=== PATIENT | male | born 1930 | race Two or more races ===

== ENCOUNTER 2018-09-06 07:01 | Emergency (ER) | payer OTHER ==
[~2018-09-06] VITALS: Ht 165.1 cm; Wt 63.5 kg
--- NOTE | 2018-09-06 07:05 | NUR ---
PT BIB [id number]. PT NON-VERBAL, HX OF DEMENTIA. PT IS ABLE TO TRACK AND FOLLOW COMMANDS. RESPONSIVE TO VERBAL AND TACTILE STIMULI. PT WAS SENT FROM [facility] FOR G-TUBE REPLACEMENT. VSS. G-TUBE SITE NOT EDEMATOUS, NO REDNESS, AND NO DISCHARGE. PT PRESENTS W/ A TRACH, ON SUPPLEMENTAL O2 2 LPM VIA N/C. PT DOES NOT APPEAR TO BE IN ANY APPARENT DISTRESS AT THIS TIME.
--- NOTE | 2018-09-06 07:11 | NUR ---
GAVE SHIFT REPORT TO RILEY SINGH.
--- NOTE | 2018-09-06 07:14 | NUR ---
Patient BIB [facility] from [facility] ([facility] for G-Tube replacement. patient pulled out his GT 30 min FILLING SEPARATOR, 911 was called and patient was brought here for the replacement.
[2018-09-06 09:10] LABS: BASOPHILS # (AUTO) 0.1 K/uL (0.0-8.0); BASOPHILS % (AUTO) 0.8 % (0.0-2.0); EOSINOPHILS # (AUTO) 1.1 K/uL (0.0-0.7); EOSINOPHILS % (AUTO) 12.8 % (0.0-7.0); HEMATOCRIT 35.3 % (36.7-47.1); HEMOGLOBIN 11.8 g/dL (12.5-16.3); LYMPHOCYTES # (AUTO) 1.8 K/uL (20.0-40.0); LYMPHOCYTES % (AUTO) 20.8 % (20.5-51.5); MEAN CORPUSCULAR HEMOGLOBIN 27.6 uug (23.8-33.4); MEAN CORPUSCULAR HGB CONC 34 g/dL (32.5-36.3); MEAN CORPUSCULAR VOLUME 82.3 fL (73.0-96.2); MONOCYTES # (AUTO) 0.8 K/uL (2.0-10.0); MONOCYTES % (AUTO) 8.8 % (0.0-11.0); NEUTROPHILS # (AUTO) 4.9 K/uL (1.8-8.9); NEUTROPHILS % (AUTO) 56.8 % (38.5-71.5); PLATELET COUNT (AUTO) 257 K/uL (152-348); RED BLOOD CELL COUNT(AUTO) 4.29 MIL/uL (4.06-5.63); WHITE BLOOD COUNT (AUTO) 8.6 K/uL (3.6-10.2)
[2018-09-06 09:21] LABS: CARBON DIOXIDE 30 mmol/L (21-32); CHLORIDE 106 mmol/L (98-107); CREATININE 1.1 mg/dL (0.6-1.3); GLUCOSE 98 mg/dL (74-106); POTASSIUM 3.9 mmol/L (3.5-5.1); UREA NITROGEN, BLOOD 33 mg/dL (7-18)
[2018-09-06 09:27] LABS: ALANINE AMINOTRANSFERASE 36 U/L (16-63); ALKALINE PHOSPHATASE 80 U/L (50-136); ASPARTATE AMINOTRANSFERASE 35 U/L (15-37); BILIRUBIN,DIRECT 0.1 mg/dL (0.0-0.2); BILIRUBIN,TOTAL 0.4 mg/dL (0.2-1.0); TOTAL PROTEIN, SERUM 9.1 g/dL (6.4-8.2)
--- NOTE | 2018-09-06 10:13 | NUR ---
PERINEAL HYGIENE PROVIDED FOR PT. PT HELPING THROUGH THE PROCESS. WET DIAPER, NO BM.
[2018-09-06] MEDS ORDERED: BLOO-360 (10:14)
[2018-09-06] MEDS ORDERED: LACT10SO6 PO (10:14)
[2018-09-06] MEDS ORDERED: DIPH25CA83 GT (10:14)
[2018-09-06] MEDS ORDERED: LANTUS SQ (10:14)
[2018-09-06] MEDS ORDERED: DEXT15DR6 EACHEYE (10:14)
[2018-09-06] MEDS ORDERED: LORA-259 GT (10:14)
[2018-09-06] MEDS ORDERED: LORA10TA7 GT (10:14)
[2018-09-06] MEDS ORDERED: ACET-2154 GT (10:14)
[2018-09-06] MEDS ORDERED: METO5TAB2 GT (10:14)
[2018-09-06] MEDS ORDERED: METO-356 GT (10:14)
[2018-09-06] MEDS ORDERED: DOXA4TAB3 GT (10:14)
[2018-09-06] MEDS ORDERED: IPRA0.2S48 NEB (10:18)
[2018-09-06] MEDS ORDERED: ALBU2.5V38 NEB (10:18)
[2018-09-06] MEDS ORDERED: ALBUTEROL/IPRATROPIU NEB (10:18)
--- NOTE | 2018-09-06 11:30 | NUR ---
CALLED PT DAUGHTER, ANY THOMPSON, AT [phone], TO OBTAIN THE CONSENT FOR G-TUBE PLACEMENT, PER DR. RIZO REQUEST.WITNESSED BY SAMANTHA LIN.
--- NOTE | 2018-09-06 11:55 | NUR ---
FIELD AUDITOR CAME TO TAKE THE PT TO OR. PT IN STABLE CONDITION.
[2018-09-06] MEDS ORDERED: IV NS 1000 ML 1,000 ML IV PRN (13:00)
--- NOTE | 2018-09-06 13:18 | NUR ---
[facility] light with in reach v/s are stable , called for admission orders
[2018-09-06 13:38] VITALS: BP 141/79
--- NOTE | 2018-09-06 13:56 | NUR ---
Nutrition consult for "Resume GT feeding" was received. Admitted from SNF for G-tube replacement. h/o dementia, DM type II, tracheostomy. s/p G-tube replacement. Anthropometrics: Ht: 65 in ABW: 140#/63.6kg IBW: 136#/61.8kg %IBW: 103% BMI: 23.3 kg/m2 Estimated nutritional needs (based on ABW 64kg): Kcal: 4911-2040 kcal/day (25-30 kcal/kg ABW) Protein: 64-77 gm/day (1-1.2 gm/kg ABW) Fluid: 7499-1627 ml/day (25-30 ml/kg ABW) Recommend: Glucerna @ 60 ml/hr x 22 hrs Provides: 1584 kcal, 79 gm protein, 1063 ml water daily Meets: 99% of low end of est. kcal needs and 102% of high end of est. protein needs RD to monitor. Will recommend to change rate/formula as indicated Addendum: 09/06/18 at [address] Amended: Links added.
[2018-09-06] MEDS ORDERED: GLUCERNA 1.2 1000ML LIQUID GT PRN (15:00)
[2018-09-06 16:00] VITALS: BP 129/82
[2018-09-06] MEDS ORDERED: CEFAZOLIN 1 G VIAL MC ONE (18:39)
[2018-09-06] MEDS ORDERED: PROPOFOL 200 MG/20 ML BOTTLE IV ONE (18:39)
[2018-09-06] MEDS ORDERED: SIMETHICONE 40 MG/0.6 ML 30 ML BOTTLE MC ONE (18:39)
--- NOTE | 2018-09-06 18:39 | NUR ---
D/C ORDERS RECEIVED NOTED AND CARRIED OUT,D/C HEPLOCK PER MD ORDERS,D/C INSTRUCTION AND REPORT GIVEN TO VITALY.PT LEFT THE FACILITY VIA AMBULANCES IN STABLE CONDITION
[2018-09-07] MEDS ORDERED: PANTOPRAZOLE SODIUM 40 MG VIAL IV SCH (09:00)
== END 2018-09-06 11:55 ==
LOC: ER 07:06 → UNDOADMIN 11:11 → MED 11:11 → UNDODISIN 18:40
PROC: 0DH63UZ Insertion of Feeding Device into Stomach, Percutaneous Approach (ICD-10-PCS; principal; 2018-09-06 12:05)
DX: Z43.1 Encounter for attention to gastrostomy (principal); D63.8 Anemia in other chronic diseases classified elsewhere; E11.9 Type 2 diabetes mellitus without complications; Z79.4 Long term (current) use of insulin; F03.90 Unspecified dementia, unspecified severity, without behavioral disturbance, psychotic disturbance, mood disturbance, and anxiety; Z93.0 Tracheostomy status; E43 Unspecified severe protein-calorie malnutrition; Z68.23 Body mass index [BMI] 23.0-23.9, adult; J96.10 Chronic respiratory failure, unspecified whether with hypoxia or hypercapnia; Z99.81 Dependence on supplemental oxygen; I10 Essential (primary) hypertension
CPT/HCPCS: 36415; 85025; 85730; 93005; A4217; A4663; G0378; J0690; J3490